=== PATIENT | male | born 1995 | race Caucasian/White ===

== ENCOUNTER 2020-03-30 15:12 | Emergency (ER) | payer BC, OTHER ==
[2020-03-30] MEDS ORDERED: Acetaminophen/HYDROcodone 325-5 MG Tab PO ONE (15:31)
--- NOTE | 2020-03-30 16:05 | EDM.PDOC ---
ED HPI GENERAL MEDICAL PROBLEM - General Chief Complaint: Genitourinary Problem Stated Complaint: TESTICULAR PAIN Time Seen by Provider: 03/30/20 15:13 Source of Information: Reports: Patient History Limitations: Reports: No Limitations - History of Present Illness INITIAL COMMENTS - FREE TEXT/NARRATIVE: HISTORY AND PHYSICAL: History of present illness: Patient is a 24-year-old male who presents to the emergency room with complaints of right testicular pain. He states he started to notice some discomfort on Tuesday evening and it has progressively gotten worse. Review of systems: As per history of present illness and below otherwise all systems reviewed and negative. Past medical history: As per history of present illness and as reviewed below otherwise noncontribut ory. Surgical history: As per history of present illness and as reviewed below otherwise noncontributory. Social history: See social history for further information Family history: As per history of present illness and as reviewed below otherwise noncontributory. Physical exam: General: Well developed and well nourished 24 year old male. Alert and orientated x 3. Nontoxic in appearance and in no acute distress. Vital signs are stable and have been reviewed by me. Nursing notes were reviewed. HEENT: Atraumatic, normocephalic, pupils equal and reactive bilaterally, negative for conjunctival pallor or scleral icterus, mucous membranes moist, TMs normal bilaterally, throat clear, neck supple, nontender, trachea midline. No drooling or trismus noted. No meningeal signs. No hot potato voice noted. Lungs: Clear to auscultation, breath sounds equal bilaterally, chest nontender. Normal work of breathing, no accessory muscles used. Heart: S1S2, regular rate and rhythm without overt murmur Abdomen: Soft, nondistended, nontender. Negative for masses or hepatosplenomegaly. Negative for costovertebral tenderness. Pelvis: Stable nontender. Genitourinary: This was done with consent and a senior environmental practice leader at the bedside. Testicles are symmetrical in similar size. Positive cremasteric reflux bilaterally. Mild tenderness with palpation of the right testicle. No hernia is appreciated bilaterally. Skin: Intact, warm, dry. No lesions or rashes noted. Hematologic: No petechiae or purpra. Mucosa appropriate color and normal nail bed color and refill. Extremities: Atraumatic, moves all extremities per self without difficulty or deficits, negative for cords or calf pain. Neurovascular unremarkable. Neuro: Awake, alert, oriented. Cranial nerves II through XII unremarkable. Cerebellum unremarkable. Motor and sensory unremarkable throughout. Exam nonfocal. Psychiatric: Mood and affect are appropriate. Normal thought process. Answering questions appropriately. Notes: Ultrasound shows small bilateral hydroceles, greater on the left than the right. Lab work is unremarkable. G/C urine is a send out. Due to patient being sexually active and presentation with treat with Rocephin and Doxy, discussed this with patient and he is agreeable. Reassessment at the time of disposition demonstrates that the patient is in no acute distress. The patient is stable for discharge, counseling was provided and we discussed in great detail signs and symptoms that would prompt them to return to the Emergency Department. Medication, follow up and supportive care measures were reviewed and discussed. Voices understanding and is agreeable to plan of care. Denies any further questions or concerns at this time. Diagnostics: CBC, CMP, UA, John/Chlam, Testicular U/S Therapeutics: [place], Rocephin, Doxycycline Prescription: Doxycycline, Ibuprofen Impression: Epididymo-orchitis Plan: 1. Wear supportive underwear. Alternate Tylenol and Ibuprofen as needed for pain. 2. Take the antibiotic as directed. 3. We encourage you to follow up with your primary care provider and/or recommended specialist in the next few days for re-evaluation and further care/management. If your symptoms should worsen, new symptoms develop or any of the signs and symptoms we discussed should arise please return to the emergency room or call 911 (if needed). Definitive disposition and diagnosis as appropriate pending reevaluation and review of above. Right Scrotum Pain Score (Numeric/FACES): 2 - Related Data Allergies Allergy/AdvReac Type Severity Reaction Status Date / Time No Known Allergies Allergy Verified 03/30/20 15:22 Home Meds: Home Meds Doxycycline [Vibramycin] 100 mg PO BID 7 Days #13 tab 03/30/20 [Rx] Ibuprofen 600 mg PO TID PRN #30 tablet 03/30/20 [Rx] Past Medical History - Past Health History Medical/Surgical History: Denies Medical/Surgical History Psychiatric History: Reports: None - Infectious Disease History Infectious Disease History: Reports: Chicken Pox Social & Family History - Family History Family Medical History: No Pertinent Family History - Tobacco Use Tobacco Use Status *Q: Never Tobacco User - Caffeine Use Caffeine Use: Reports: Coffee - Recreational Drug Use Recreational Drug Use: No ED ROS GENERAL - Review of Systems Review Of Systems: Comprehensive ROS is negative, except as noted in HPI. ED EXAM, RENAL/ - Physical Exam Exam: See Below (See dictation) Course - Vital Signs Last Recorded V/S: Last Vital Signs Temp 96.4 F L 03/30/20 16:43 Pulse 116 H 03/30/20 16:43 Resp 18 03/30/20 16:43 BP 159/111 H 03/30/20 16:43 Pulse Ox 97 03/30/20 16:43 - Orders/Labs/Meds Orders: Active Orders 24 hr Category Date Time Status Scrotal Duplex Ltd [US] Routine Exams 03/30/20 16:36 Taken CHLAMYDIA AND GONORRHEA BY [facility] Stat Lab 03/30/20 15:32 Received Labs: Laboratory Tests 03/30/20 03/30/20 03/30/20 Range/Units 15:32 16:06 16:06 WBC 9.29 (4.0-11.0) K/uL RBC 5.53 (4.50-5.90) M/uL Hgb 16.1 (13.0-17.0) g/dL Hct 47.1 (38.0-50.0) % MCV 85.2 (80.0-98.0) fL MCH 29.1 (27.0-32.0) pg MCHC 34.2 (31.0-37.0) g/dL RDW Std Deviation 39.8 (28.0-62.0) fl RDW Coeff of [place] 13 (11.0-15.0) % Plt Count 248 (150-400) K/uL MPV 9.30 (7.40-12.00) fL Neut % (Auto) 55.8 (48.0-80.0) % Lymph % (Auto) 30.6 (16.0-40.0) % [place] % (Auto) 9.3 (0.0-15.0) % Eos % (Auto) 3.9 (0.0-7.0) % Baso % (Auto) 0.4 (0.0-1.5) % Neut # (Auto) 5.2 (1.4-5.7) K/uL Lymph # (Auto) 2.8 H (0.6-2.4) K/uL [place] # (Auto) 0.9 H (0.0-0.8) K/uL Eos # (Auto) 0.4 (0.0-0.7) K/uL Baso # (Auto) 0.0 (0.0-0.1) K/uL Nucleated RBC % 0.0 /100WBC Nucleated RBCs # 0 K/uL Sodium 137 (136-148) mmol/L Potassium 4.6 (3.5-5.1) mmol/L Chloride 103 (98-107) mmol/L Carbon Dioxide 27.3 (21.0-32.0) mmol/L BUN 16 (7.0-18.0) mg/dL Creatinine 1.2 (0.8-1.3) mg/dL Est Cr Clr Drug Dosing 99.35 mL/min Estimated GFR (MDRD) > 60.0 ml/min Glucose 149 H (74-106) mg/dL Calcium 9.4 (8.5-10.1) mg/dL Total Bilirubin 0.3 (0.2-1.0) mg/dL AST 11 L (15-37) IU/L ALT 28 (14-63) IU/L Alkaline Phosphatase 62 (46-116) U/L Total Protein 7.2 (6.4-8.2) g/dL Albumin 4.0 (3.4-5.0) g/dL Globulin 3.2 (2.6-4.0) g/dL Albumin/Globulin Ratio 1.3 (0.9-1.6) Urine Color YELLOW Urine Appearance CLEAR Urine pH 6.0 (5.0-8.0) Ur Specific [place] 1.025 (1.001-1.035) Urine Protein NEGATIVE (NEGATIVE) mg/dL Urine Glucose (UA) NEGATIVE (NEGATIVE) mg/dL Urine Ketones NEGATIVE (NEGATIVE) mg/dL Urine Occult Blood NEGATIVE (NEGATIVE) Urine Nitrite NEGATIVE (NEGATIVE) Urine Bilirubin NEGATIVE (NEGATIVE) Urine Urobilinogen 0.2 (<2.0) EU/dL Ur Leukocyte Esterase NEGATIVE (NEGATIVE) Meds: Medications Discontinued Medications Generic Name Dose Route Start Last Admin Trade Name Freq PRN Reason Stop Dose Admin Hydrocodone Bitart/Acetaminophen 1 tab 03/30/20 15:31 03/30/20 15:35 [place] 325-5 Mg PO 03/30/20 15:32 1 tab ONETIME ONE Administration Doxycycline Hyclate 100 mg 03/30/20 16:47 03/30/20 16:55 Vibramycin PO 03/30/20 16:48 100 mg ONETIME ONE Administration Ceftriaxone Sodium 500 mg/ 2 mls @ 2 mls/sec 03/30/20 16:47 03/30/20 16:55 Lidocaine HCl IM 03/30/20 16:48 2 mls/sec ONETIME ONE Administration Departure - Departure Time of Disposition: 17:04 Disposition: Home, Self-Care 01 Clinical Impression: Epididymo-orchitis - Discharge Information Prescriptions: Ibuprofen 600 mg PO TID PRN #30 tablet PRN Reason: Pain Doxycycline [Vibramycin] 100 mg PO BID 7 Days #13 tab Instructions: Orchitis Referrals: PCP,None [Primary Care Provider] - Forms: ED Department Discharge Additional Instructions: The following information is given to patients seen in the emergency department who are being discharged to home. This information is to outline your options for follow-up care. We provide all patients seen in our emergency department with a follow-up referral. The need for follow-up, as well as the timing and circumstances, are variable depending upon the specifics of your emergency department visit. If you don't have a primary care physician on staff, we will provide you with a referral. We always advise you to contact your personal physician following an emergency department visit to inform them of the circumstance of the visit and for follow-up with them and/or the need for any referrals to a consulting specialist. The emergency department will also refer you to a specialist when appropriate. This referral assures that you have the opportunity for follow-up care with a specialist. All of these measure are taken in an effort to provide you with optimal care, which includes your follow-up. Under all circumstances we always encourage you to contact your private physician who remains a resource for coordinating your care. When calling for follow-up care, please make the office aware that this follow-up is from your recent emergency room visit. If for any reason you are refused follow-up, please contact the Emergency Department at and asked to speak to the emergency department charge nurse. Primary Care [address] [place] [id number] [facility] [address] [place] [id number] Thank you for choosing the [facility] emergency department in [place] for your medical needs today. It was a pleasure caring for you. Today you were seen in the emergency department for testicular pain. 1. Wear supportive underwear. Alternate Tylenol and Ibuprofen as needed for pain. 2. Take the antibiotic as directed. 3. We encourage you to follow up with your primary care provider and/or recommended specialist in the next few days for re-evaluation and further care/management. If your symptoms should worsen, new symptoms develop or any of the signs and symptoms we discussed should arise please return to the emergency room or call 911 (if needed). Sepsis Event Note (ED) - Evaluation Sepsis Screening Result: No Definite Risk - Focused Exam Vital Signs: Vital Signs Temp Pulse Resp BP Pulse Ox 03/30/20 16:43 96.4 F L 116 H 18 159/111 H 97 03/30/20 15:23 96.5 F L 108 H 20 184/105 H 99 - My Orders Last 24 Hours: My Active Orders 03/30/20 15:32 CHLAMYDIA AND GONORRHEA BY [facility] Stat - Assessment/Plan Last 24 Hours: My Active Orders 03/30/20 15:32 CHLAMYDIA AND GONORRHEA BY [facility] Stat
[2020-03-30 16:36] LABS: BLOOD UREA NITROGEN,BUN 16 mg/dL (7.0-18.0); CARBON DIOXIDE,CO2 27.3 mmol/L (21.0-32.0); CHLORIDE,CL 103 mmol/L (98-107); GLUCOSE RANDOM 149 mg/dL (74-106); POTASSIUM,K 4.6 mmol/L (3.5-5.1); SODIUM,NA 137 mmol/L (136-148)
[2020-03-30] MEDS ORDERED: cefTRIAXone 500 MG in Lidocaine 1% 2 ML IM ONE (16:47)
[2020-03-30] MEDS ORDERED: Doxycycline 100 MG Cap PO ONE (16:47)
--- NOTE | 2020-03-30 16:54 | US ---
Indication: Right testicular pain. Technique: Grayscale color Doppler ultrasound of the scrotum was performed. Comparison: None Findings: The right testis is homogeneous in echotexture measuring 3.9 x 2.2 x 2.8 centimeters in size. The epididymis is normal in size. Normal color flow is identified to the right testis and epididymis. A trace hydrocele is identified. The left testis measures 3.9 x 2.4 x 2.7 centimeters in size. The testis and epididymis are homogeneous in echotexture. The epididymis is normal in size. A small left-sided hydrocele is identified. Normal color flow is identified to the left testis and left epididymis. Impression: Small bilateral hydroceles, greater on the left than the right Dictated by Rosaline Jay MD @ Mar 30 2020 4:48PM Signed by Dr. Rosaline Jay @ Mar 30 2020 4:52PM
[2020-03-30 18:54] VITALS: BP 165/90; PULSE 78
--- NOTE | 2020-03-31 14:05 | US ---
EXAM DATE: 03/30/20 PATIENT'S AGE: 24 Patient: SUZANNE BOTELLO Facility: [facility] Site . Site : 1995 Study: US-Testicle -03/30/2020 4:40:10 PM Ordering Physician: Juan Landaverde Final Report: Indication: Right testicular pain. Technique: Grayscale color Doppler ultrasound of the scrotum was performed. Comparison: None Findings: The right testis is homogeneous in echotexture measuring 3.9 x 2.2 x 2.8 centimeters in size. The epididymis is normal in size. Normal color flow is identified to the right testis and epididymis. A trace hydrocele is identified. The left testis measures 3.9 x 2.4 x 2.7 centimeters in size. The testis and epididymis are homogeneous in echotexture. The epididymis is normal in size. A small left-sided hydrocele is identified. Normal color flow is identified to the left testis and left epididymis. Impression: Small bilateral hydroceles, greater on the left than the right Dictated by Rosaline Jay MD @ Mar 30 2020 4:48PM Signed by: Rosaline Jay MD @03/30/2020 4:52:37 PM (Electronic Signature) Report Signed by Proxy. JOSE
[2020-04-01 14:06] LABS: C.TRACHOMATIS BY TMA Negative (Negative); N.GONORRHOEAE BY TMA Negative (Negative)
== END 2020-03-30 17:15 | disposition home or self-care (01) ==
LOC: MW.ED 15:12
DX: N45.3 Epididymo-orchitis (principal)
CPT/HCPCS: 36415; 76870; 80053; 81003; 85025; 87491; 87591; 93976; 96372; 99284; A9270; J0696; J2001; 99283

== ENCOUNTER 2022-05-28 10:23 | Emergency (ER) | payer BC, OTHER ==
[2022-05-28] MEDS ORDERED: Sodium Chloride 0.9% 10 ML Syringe FLUSH PRN (10:48)
[2022-05-28] MEDS ORDERED: Sodium Chloride 0.9% 1,000 ML IV ONE (10:48)
[2022-05-28] MEDS ORDERED: Sodium Chloride 0.9% 2.5 ML Syringe FLUSH PRN (10:48)
[2022-05-28] MEDS ORDERED: HYDROmorphone 1 MG/ML Syringe IVPUSH ONE (10:48)
[2022-05-28] MEDS ORDERED: Prochlorperazine 10 MG/2 ML SDV IVPUSH ONE (10:48)
[2022-05-28 11:38] LABS: CARBON DIOXIDE,CO2 28.8 mmol/L (21.0-32.0); POTASSIUM,K 3.8 mmol/L (3.5-5.1)
[2022-05-28] MEDS ORDERED: Pantoprazole 40 MG in Sodium Chloride 0.9% 10 ML IVPUSH ONE (11:53)
[2022-05-28] MEDS ORDERED: Iopamidol 755 MG/ML 500 ML Multipack Bottle IVPUSH ONE (11:53)
[2022-05-28] MEDS ORDERED: Ketorolac 30 MG/ML SDV IVPUSH ONE (11:53)
[2022-05-28] MEDS ORDERED: diphenhydrAMINE 50 MG/ML SDV IVPUSH ONE (13:04)
[2022-05-28 13:26] VITALS: BP 146/108; PULSE 96
== END 2022-05-28 13:25 | disposition home or self-care (01) ==
LOC: MW.ED 10:23
DX: K29.70 Gastritis, unspecified, without bleeding (principal); K76.0 Fatty (change of) liver, not elsewhere classified; E66.9 Obesity, unspecified; Z68.44 Body mass index [BMI] 60.0-69.9, adult
CPT/HCPCS: 36415; 71046; 74177; 76705; 80053; 83690; 85025; 96361; 96374; 96375; 99284; C9113; J0780; J1170; J1200; J3490; J7030; Q9967

== ENCOUNTER 2022-06-14 10:56 | Emergency (ER) | payer OTHER ==
[2022-06-14 13:50] VITALS: BP 149/95; PULSE 83
== END 2022-06-14 13:49 | disposition home or self-care (01) ==
LOC: MW.ED 10:56
DX: Z86.72 Personal history of thrombophlebitis (principal)
CPT/HCPCS: 99282; 99283